=== PATIENT | female | born 1960 | race African-American/Black ===

== ENCOUNTER 2018-01-24 16:23 | Emergency (ER) | payer OTHER ==
[~2018-01-24] VITALS: Ht 157.5 cm; Wt 50.8 kg
[2018-01-24 16:30] VITALS: BP 121/78
--- NOTE | 2018-01-24 16:35 | NUR ---
PT TRIAGED AND AMBULATED TO ED BED 2
--- NOTE | 2018-01-24 16:36 | NUR ---
REPORT TO ANGÉLICA WHITESIDE
--- NOTE | 2018-01-24 16:37 | NUR ---
PT AMBULATES TO BED 3
--- NOTE | 2018-01-24 16:40 | NUR ---
57 YO FEMALE BIB SELF C/O RT SIDED FACIAL NUMBNESS SINCE YESTERDAY. PT STATES " WATER WAS FALLING OUT OF MOUTH D/T INABILITY TO KEEP IT CLOSED." GCS 15, BILAT EQUAL PUPILS, ABLE TO SPEAK CLEARLY AND TONGUE IS SYMMETRICAL. DENIES CP/SOB. RT NECK HURTS 2/10 ACHING. PT DENIES N/V/D; SKIN IS PINK/WARM/DRY; AAOX4 WITH EVEN AND STEADY GAIT; LUNGS CLEAR BL; HR EVEN AND REGULAR; PT DENIES ANY FEVER, CP, SOB, OR COUGH AT THIS TIME; VSS; PATIENT POSITIONED FOR COMFORT; HOB ELEVATED; BEDRAILS UP X1; BED DOWN. ER MD MADE AWARE OF PT STATUS. HX: COLON CA MEDS: NONE
--- NOTE | 2018-01-24 16:53 | NUR ---
Patient being evaluated by physician at bedside.
--- NOTE | 2018-01-24 17:00 | NUR ---
PT TAKEN TO CT
--- NOTE | 2018-01-24 17:06 | NUR ---
PT BACK FROM CT
[2018-01-24 17:26] LABS: BASOPHILS # (AUTO) 0.1 K/uL (0.00-0.22); BASOPHILS % (AUTO) 1.4 % (0.0-2.0); HEMATOCRIT 40.1 % (36-48); HEMOGLOBIN 13.3 g/dL (12.0-16.0); LYMPHOCYTES # (AUTO) 1.4 K/uL (2.5-16.5); LYMPHOCYTES % (AUTO) 29.5 % (20.5-51.1); MEAN CORPUSCULAR HEMOGLOBIN 31 pg (27-31); MEAN CORPUSCULAR HGB CONC 33 g/dL (33-37); MEAN CORPUSCULAR VOLUME 94.2 fL (80-94); MONOCYTES # (AUTO) 0.3 K/uL (0.8-1.0); MONOCYTES % (AUTO) 6.7 % (1.7-9.3); NEUTROPHILS # (AUTO) 2.9 K/uL (1.8-7.7); NEUTROPHILS % (AUTO) 61.4 % (42.2-75.2); PLATELET COUNT (AUTO) 210 K/uL (140-450); RED BLOOD CELL COUNT(AUTO) 4.25 MIL/uL (4.20-5.40); RED CELL DISTRIBUTION WIDTH 13.2 % (11.6-13.7); WHITE BLOOD COUNT (AUTO) 4.7 K/uL (4.8-10.8)
[2018-01-24 17:43] LABS: CARBON DIOXIDE 27.3 mmol/L (21-32); CREATININE 0.6 mg/dL (0.6-1.3); POTASSIUM 3.3 mmol/L (3.5-5.1)
[2018-01-24 17:49] LABS: ALBUMIN 4.1 g/dL (3.4-5.0); MAGNESIUM 2.2 mg/dL (1.8-2.4); TOTAL BILIRUBIN 1.2 mg/dL (0.0-1.0)
[2018-01-24 17:53] LABS: D-DIMER < 100 ng/ml (0-400)
[2018-01-24] MEDS ORDERED: KETOROLAC 60 MG/2 ML VIAL IM ONE (17:55)
[2018-01-24] MEDS ORDERED: DEXAMETHASONE 10 MG/ML VIAL IM ONE (17:55)
[2018-01-24 17:56] LABS: PROTHROMBIN TIME 9.3 secs (10.8-13.4)
[2018-01-24 19:06] VITALS: BP 120/75
--- NOTE | 2018-01-24 19:06 | NUR ---
Patient discharged with v/s stable. Written and verbal after care instructions given and explained. Patient alert, oriented and verbalized understanding of instructions. Ambulatory with steady gait. All questions addressed prior to discharge. ID band removed. Patient advised to follow up with PMD. Rx of PREDNISONE, ACYCLOVIR given. Patient educated on indication of medication including possible reaction and side effects. Opportunity to ask questions provided and answered.
== END 2018-01-24 19:06 | disposition home or self-care (01) ==
LOC: MED 16:23
DX: G51.0 Bell's palsy (principal); Z85.038 Personal history of other malignant neoplasm of large intestine; Z88.1 Allergy status to other antibiotic agents
CPT/HCPCS: 70450; 71045; 80053; 83735; 84484; 85025; 85379; 85610; 85730; 93005; 96372; 99285; J1100; J1885; Q0092